=== PATIENT | male | born 1985 | race Caucasian/White ===

== ENCOUNTER 2017-09-27 13:22 | Emergency (ER) | payer OTHER ==
[~2017-09-27] VITALS: Ht 175.3 cm; Wt 112.0 kg
--- NOTE | 2017-09-27 13:47 | ED GU-Male ---
General Chief Complaint: -Male Stated Complaint: TESTICULAR PAIN Nursing Triage Note: ARRIVED VIA AMB TO ROOM 08 ET SENT FROM [facility]. COMPLAINS OF TESTICULAR PAIN THAT STARTED SATURDAY EVENING. Source: patient Exam Limitations: no limitations History of Present Illness Date Seen by Provider: Sep 27, 2017 Time Seen by Provider: 13:44 Initial Comments to ER with reports of left testicular pain. This began on Saturday (today is Saturday). He noticed some mild pain in the left testicle. Over the course of the week pain has increased and now affects the right testicle as well. he denies any dysuria, denies fevers or chills. States that he is not sexually active. He denies any injury such as being kicked or hit. Timing/Duration: just prior to arrival Severity/Quality: moderate Location: scrotal Radiation: none Activities at Onset: none Prior Genitourinary Problems: none Associated Symptoms: No abdominal pain, No dysuria Allergies and Home Medications Allergies Coded Allergies: Penicillins (Verified Allergy, Unknown, 09/27/17) Home Medications Sulfamethoxazole/Trimethoprim 1 Each Tablet, 1 EACH PO BID Prescribed by: ZAINA NEWSOME on 09/27/17 0227 Patient Home Medication List Home Medication List Reviewed: Yes Review of Systems Constitutional: see HPI EENTM: see HPI Respiratory: no symptoms reported Cardiovascular: no symptoms reported Genitourinary: see HPI; denies dysuria; pain Musculoskeletal: no symptoms reported Skin: no symptoms reported Psychiatric/Neurological: No Symptoms Reported Endocrine: No Symptoms Reported Hematologic/Lymphatic: No Symptoms Reported Past Ccrwwzh-Pulynn-Ycgoce Hx Patient Social History Alcohol Use: Denies Use Recreational Drug Use: No Smoking Status: Current Everyday Smoker Recent Foreign Travel: No Contact w/Someone Who Travel: No Recent Infectious Disease Expo: No Recent Hopitalizations: No Past Medical History Surgeries: Yes (DENTAL) Orthopedic Respiratory: No Cardiac: No Neurological: No Genitourinary: No Gastrointestinal: No Musculoskeletal: No Endocrine: No HEENT: No Psychosocial: No Physical Exam Vital Signs Vital Signs - First Documented 09/27/17 13:27 Temp 98.0 Pulse 84 Resp 16 B/P (MAP) 143/101 (115) Pulse Ox 98 O2 Delivery Room Air Capillary Refill : Less Than 3 Seconds Height, Weight, BMI Height: 5'9.00" Weight: 247lbs. oz. 112.536725wc; BMI Method:Stated General Appearance: WD/WN, no apparent distress HEENT: PERRL/EOMI, normal ENT inspection Neck: non-tender, full range of motion Respiratory: no respiratory distress, no accessory muscle use Gastrointestinal: normal bowel sounds, non tender Male: normal genitalia; No erythema, No inguinal tenderness; testicular tenderness (left testicle is tender to palpation, scrotum is normal in appearance without thickening, abscess/pustule, evidence of cellulitis. ) Extremities: normal range of motion, non-tender Neurologic/Psychiatric: alert, normal mood/affect, oriented x 3 Skin: normal color, warm/dry Progress/Results/Core Measures Suspected Sepsis Recent Fever Within 48 Hours: No Infection Criteria Present: Suspected New Infection New/Unexplained Altered Menta: No Sepsis Screen: No Definite Risk SIRS Temperature:98.0 Pulse: 84 Respiratory Rate: 16 Blood Pressure 143 /101 Mean: 115 Results/Orders Lab Results Laboratory Tests Test 09/27/17 13:50 Range/Units Urine Color YELLOW Urine Clarity CLEAR Urine pH 6.5 5-9 Urine Specific [place] 1.005 L 1.016-1.022 Urine Protein NEGATIVE NEGATIVE Urine Glucose (UA) NEGATIVE NEGATIVE Urine Ketones NEGATIVE NEGATIVE Urine Nitrite NEGATIVE NEGATIVE Urine Bilirubin NEGATIVE NEGATIVE Urine Urobilinogen NORMAL NORMAL MG/DL Urine Leukocyte Esterase NEGATIVE NEGATIVE Urine RBC (Auto) NEGATIVE NEGATIVE Urine RBC NONE /HPF Urine WBC NONE /HPF Urine Squamous Epithelial Cells NONE /HPF Urine Crystals NONE /LPF Urine Bacteria NEGATIVE /HPF Urine Casts NONE /LPF Urine Mucus NEGATIVE /LPF Urine Culture Indicated NO My Orders Orders - ZAINA NEWSOME APRN Ua Culture If Indicated (09/27/17 13:43) Neis Chip Dna Urine Test (09/27/17 13:43) Chlamydia Trachomatis Urine (09/27/17 13:43) Us Scrotum (Testicle) [id number] (09/27/17 13:43) Vital Signs/I&O 09/27/17 13:27 Temp 98.0 Pulse 84 Resp 16 B/P (MAP) 143/101 (115) Pulse Ox 98 O2 Delivery Room Air Capillary Refill : Less Than 3 Seconds Blood Pressure Mean: 115 Departure Impression Primary Impression: Left testicular pain Disposition: 01 HOME, SELF-CARE Condition: Stable Departure-Patient Inst. Decision time for Depature: 14:53 Referrals: NO,LOCAL PHYSICIAN (PCP) Primary Care Physician PARISH WEAVER MD Patient Instructions: Epididymitis (DC) Add. Discharge Instructions: 1. Call Dr Weaver (urologist) on Saturday if you have persistent testicular pain. Return to ER for any intolerable pain. Over the weekend, no strenuous activity, spend most of your time laying down, roll up a towel and place beneath the scrotum to help elevate the scrotum. Ice pack to the scrotum at 30 minute intervals. Tylenol and motrin for pain control. Antibiotics as directed All discharge instructions reviewed with patient and/or family. Voiced understanding. Scripts Hydrocodone/Acetaminophen ([place]ark 5-325 Tablet) 1 Each Tablet 1 EACH PO Q6H PRN for PAIN-MODERATE TO SEVERE, #10 TAB Prov: ZAINA NEWSOME APRN 09/27/17 Sulfamethoxazole/Trimethoprim (Bactrim Ds Tablet) 1 Each Tablet 1 EACH PO BID, #14 TAB Prov: ZAINA NEWSOEM APRN 09/27/17 ZAINA NEWSOME APRN Sep 27, 2017 13:47
[2017-09-27 13:56] LABS: BILIRUBIN,URINE NEGATIVE (NEGATIVE); CLARITY,URINE CLEAR; COLOR,URINE YELLOW; GLUCOSE, URINE (UA) NEGATIVE (NEGATIVE); KETONES,URINE NEGATIVE (NEGATIVE); LEUKOCYTE ESTERASE ,URINE NEGATIVE (NEGATIVE); NITRITE,URINE NEGATIVE (NEGATIVE); PH,URINE 6.5 (5-9); PROTEIN,URINE NEGATIVE (NEGATIVE); UROBILINOGEN,URINE NORMAL (NORMAL)
[2017-09-27 14:03] LABS: BACTERIA,URINE NEGATIVE /HPF
[2017-09-27] MEDS ORDERED: SULF1TAB35 PO (14:55)
[2017-09-27] MEDS ORDERED: HYDR-757 PO (15:05)
[2017-09-27 15:17] VITALS: BP 136/98
--- NOTE | 2017-09-27 15:35 | Diagnostic Imaging Report ---
INDICATION: Left-sided testicular pain. Scrotal sonography is performed in the routine fashion, including color Doppler. The right testicle measures 5.1 x 2.5 x 3.0 cm. The left testicle measures 4.1 x 2.8 x 3.0 cm. Both testicles contain color flow and show no mass lesions. The epididymides show no significant increased vascularity or focal lesion. There is no hydrocele. IMPRESSION: No focal abnormality. Dictated by: Dictated on workstation # [id number]
== END 2017-09-27 15:17 | disposition home or self-care (01) ==
LOC: ER 13:28
DX: N50.812 Left testicular pain (principal); F17.200 Nicotine dependence, unspecified, uncomplicated; Z88.0 Allergy status to penicillin
CPT/HCPCS: 36415; 76870; 81000; 87491; 87591